=== PATIENT | male | born 1945 | race Caucasian/White ===

== ENCOUNTER 2021-04-14 11:47 | Emergency (ER) | payer MEDICARE, SELFPAY ==
[2021-04-14 11:57] VITALS: BP 130/99; PULSE 143; RESP 16; TEMP 36.3; O2SAT 95; BMI 32.5
--- NOTE | 2021-04-14 12:07 | ECG_ITS ---
[facility] Test Date: 2021-04-14 Pat Name: Zack Olson Department: Room: Gender: Male [employer] Developer: : 1945 Requested By: Adore Harrell I Order Number: [id number] Brittany MD: Batsheva Beatty M.D. Measurements Intervals [place] Rate: 135 P: [place]: QRS: -53 QRSD: 89 T: 53 QT: 329 QTc: 494 Interpretive Statements ATRIAL FIBRILLATION WITH RAPID VENTRICULAR RESPONSE INFERIOR MYOCARDIAL INFARCTION , PROBABLY OLD [40+ ms Q WAVE AND/OR ST/T ABNORMALITY IN II/aVF] Compared to ECG 04/14/2021 11:19:12 Myocardial infarct finding now present Left anterior fascicular block no longer present ST (T wave) deviation no longer present Electronically Signed On 04-15-2021 9:47:27 CDT by Batsheva Beatty M.D. [id number] f
--- NOTE | 2021-04-14 12:07 | XR_ITS ---
WS: [id number] PORTABLE CHEST HISTORY: afib COMPARISON: None available. Lungs are clear and well expanded. No pleural effusion or pneumothorax. Cardiac size: Normal. Mediastinum/Aorta: Normal mediastinum. No osseous abnormality seen. XR/XR chest 1V portable [id number] IMPRESSION: Unremarkable portable chest.
--- NOTE | 2021-04-14 12:09 | ED_ITS ---
HPI - Arrhythmia/Palpitations General: Chief Complaint: Arrhythmia/Palpitations Stated Complaint: ABNORMAL EKG/WAS IN PRE-OP Time Seen by Provider: 04/14/21 11:58 Source: patient and family () Mode of arrival: ambulatory Limitations: no limitations History of Present Illness: HPI narrative: This is a 75-year-old male with a history of hypertension who was obtaining a preoperative physical for a planned hernia repair surgery next week. During the preop EKG it was discovered that he was in A. fib with RVR. He has no prior history of A. fib. He has no complaints today. No chest pain, no shortness of breath, no leg swelling, no weakness. Associated symptoms: Deny anxiety, cough, diaphoresis, muscle cramps, nausea, paresthesias, pre-syncope, sense of impending doom, short of breath, syncope or vomiting Review of Systems General: Reports: 10 or more systems reviewed and unremarkable except in HPI and below Const: Denies: diaphoresis Card: Denies: syncope or pre-syncope GI: Denies: nausea or vomiting Musc: Denies: muscle cramps Psych: Denies: anxiety Physical Exam Const: COMMON NORMALS: no acute distress, average body habitus, patient oriented x3, no limitations, healthy appearing, alert and well nourished HENMT: COMMON NORMALS: normocephalic, atraumatic and moist oral mucous membranes HEAD & SCALP: normocephalic and atraumatic Neck/C-Spine: COMMON NORMALS: full ROM, supple, no meningeal signs, no JVD and No carotid bruits Resp: COMMON NORMALS: normal respiratory effort, No retractions, No use of accessory muscles, clear to auscultation bilaterally and percussion normal AUSCULTATION: clear to auscultation bilaterally PERCUSSION: percussion normal Cardio: COMMON NORMALS: no JVD, S1 normal heart sound present, S2 normal heart sound present, No gallops present (Cardio), No clicks present (Cardio), No murmurs present (Cardio), No rub (Cardio) and Peripheral pulses 2+ throughout RATE: tachycardic RHYTHM: abnormal rhythm regularly irregular HEART SOUNDS: S1 normal heart sound present and S2 normal heart sound present PERIPHERAL PULSES: Peripheral pulses 2+ throughout GI: COMMON NORMALS: Normal to inspection, nondistended, normoactive bowel sounds present, Soft to palpation, non-tender, No hepatosplenomegaly present, no masses and no bruits PALPATION: Yes Soft to palpation and Yes No hepatosplenomegaly present Extremity: COMMON NORMALS: normal to inspection, full ROM, capillary refill normal, no calf tenderness and no pedal edema Neuro: COMMON NORMALS: patient oriented x3 SENSORIUM/ORIENTATION: Yes alert MENINGEAL SIGNS: Yes no meningeal signs Skin: COMMON NORMALS: no rashes or lesions noted, no wounds, turgor normal, no jaundice, no petechiae and no mottling GENERAL SKIN EXAM: no rashes or lesions noted and turgor normal Course Reevaluation(s): Reevaluation #1: Discussed his lab and imaging findings with him. As well as my conversation with the nursing home assistant. Patient says he would strongly like to be discharged home and is okay with an outpatient echocardiogram and work-up. He agreed to start metoprolol and Eliquis. He will obtain an outpatient echocardiogram and follow-up with cardiology. Time: 13:05 Consultations: Consultation #1: Discussed the patient with Dr. Lam, nursing home assistant. Since this is a new diagnosis of A. fib the patient can be admitted for an overnight observation, obtain an echocardiogram and started on the appropriate medications. However if he wants to be discharged home he can be discharged home with a prescription for 50 mg twice daily of metoprolol, and outpatient echocardiogram, Eliquis 5 mg twice daily, and follow-up with cardiology in the office. Time: 13:00 Vital Signs: Vital signs: Vital Signs Temperature 97.3 F L 04/14/21 11:57 Pulse Rate 70 04/14/21 14:00 Respiratory Rate 18 04/14/21 14:00 Blood Pressure 141/85 04/14/21 14:00 Pulse Oximetry 95 04/14/21 14:00 MDM - Arrhythmia/Palpitations MDM Narrative: Medical decision making narrative: Is 75-year-old male presented to the emergency department from his doctor's office where he was obtaining a preoperative physical. During the physical he was noted that he was in A. fib with RVR. He was therefore sent here to be evaluated. Patient is asymptomatic but he is in A. fib with RVR. Management options were discussed with the patient and the patient opted to be discharged home and will obtain an outpatient work-up. He was given a dose of metoprolol orally in the emergency department and he is rate became well controlled. He is discharged home with a prescription for metoprolol, Eliquis and is to follow-up with a nursing home assistant. He will also obtain an outpatient echocardiogram. Medical Records: Attestation: I reviewed the patient's medical records. Lab Data: Attestation: I reviewed the patient's lab results. Labs: Lab Results 04/14/21 04/14/21 04/14/21 Range/Units 12:08 12:08 12:08 WBC 16.1 H (4.0-10.0) 10^3/ uL RBC 5.41 H (4.1-5.3) 10^6/u L Hgb 16.0 (11.7-16.6) g/dL Hct 47.8 (42.0-52.0) % MCV 88.4 (80-94) fL MCH 29.6 (28.0-34.0) pg MCHC 33.5 (30.0-36.0) g/dL RDW 13.1 (12.1-15.1) % Plt Count 379 (130-400) 10^3/c mm MPV 10.0 (7.4-10.4) fL Neut % (Auto) 71.2 % Lymph % (Auto) 22.9 % Piute % (Auto) 5.0 % Eos % (Auto) 0.2 % Baso % (Auto) 0.3 % Neut # (Auto) 11.47 H (1.8-7.7) 10^3/u L Lymph # (Auto) 3.7 (0.8-4.8) 10^3/u L Piute # (Auto) 0.8 (0.2-0.9) 10^3/u L Eos # (Auto) 0.0 (0.0-0.8) 10^3/u L Baso # (Auto) 0.1 (0.0-0.1) 10^3/u L Nucleated RBC % (a uto) 0 % Nucleated RBCs # 0.0 /100WBC PT (12.1-14.9) SECO NDS INR (0.8-1.2) Sodium 141 (136-145) mmol/L Potassium 3.0 L (3.5-5.1) mmol/L Chloride 99 (98-107) mmol/L Carbon Dioxide 25 (22-29) mmol/L Anion Gap 20.0 H (5-19) BUN 6 L (8-23) mg/dL Creatinine 0.7 (0.7-1.2) mg/dL GFR Calculation Not Reportable Glucose 147 H (65-115) mg/dL Calculated Osmolal ity 292 (285-295) mOsm/k g Calcium 9.5 (8.5-10.5) mg/dL Total Bilirubin 0.5 (0.15-1.2) mg/dL AST 13 (0-40) U/L ALT 13 (0-41) U/L Alkaline Phosphata se 107 (40-130) IU/L Troponin T Baselin e 15 (0-15) ng/L NT-Pro-B Natriuret Pep 59 (0-125) pg/mL Total Protein 7.3 (6.6-8.7) g/dL Albumin 4.8 (3.5-5.2) g/dL Globulin 2.5 (1.3-4.6) g/dL TSH 1.26 (0.27-4.20) uIU/ mL 04/14/21 Range/Units 12:27 WBC (4.0-10.0) 10^3/ uL RBC (4.1-5.3) 10^6/u L Hgb (11.7-16.6) g/dL Hct (42.0-52.0) % MCV (80-94) fL MCH (28.0-34.0) pg MCHC (30.0-36.0) g/dL RDW (12.1-15.1) % Plt Count (130-400) 10^3/c mm MPV (7.4-10.4) fL Neut % (Auto) % Lymph % (Auto) % [place] % (Auto) % Eos % (Auto) % Baso % (Auto) % Neut # (Auto) (1.8-7.7) 10^3/u L Lymph # (Auto) (0.8-4.8) 10^3/u L Piute # (Auto) (0.2-0.9) 10^3/u L Eos # (Auto) (0.0-0.8) 10^3/u L Baso # (Auto) (0.0-0.1) 10^3/u L Nucleated RBC % (a uto) % Nucleated RBCs # /100WBC PT 13.60 (12.1-14.9) SECO NDS INR 1.01 (0.8-1.2) Sodium (136-145) mmol/L Potassium (3.5-5.1) mmol/L Chloride (98-107) mmol/L Carbon Dioxide (22-29) mmol/L Anion Gap (5-19) BUN (8-23) mg/dL Creatinine (0.7-1.2) mg/dL GFR Calculation Glucose (65-115) mg/dL Calculated Osmolal ity (285-295) mOsm/k g Calcium (8.5-10.5) mg/dL Total Bilirubin (0.15-1.2) mg/dL AST (0-40) U/L ALT (0-41) U/L Alkaline Phosphata se (40-130) IU/L Troponin T Baselin e (0-15) ng/L NT-Pro-B Natriuret Pep (0-125) pg/mL Total Protein (6.6-8.7) g/dL Albumin (3.5-5.2) g/dL Globulin (1.3-4.6) g/dL TSH (0.27-4.20) uIU/ mL Imaging Data^: CXR: Attestation: I personally reviewed and interpreted this imaging study as follows: Radiologist's impression: [address] [id number] ReportSigned Patient: Zack Olson #: [id number]: 6Acct#:[id number]/Sex: 75 / MADM Date: 04/14/21Loc: ERRoom/Bed:Attending Dr: Ordering Provider/Ordering MD: Adore Harrell MD, [facility] Date of Service: 04/14/21 Procedure(s): XR chest 1V portable [id number] Accession Number(s): [id number] Report Number: [id number] WS: [id number] PORTABLE CHEST HISTORY: afib COMPARISON: None available. Lungs are clear and well expanded. No pleural effusion or pneumothorax. Cardiac size: Normal. Mediastinum/Aorta: Normal mediastinum. No osseous abnormality seen. XR/XR chest 1V portable [id number] IMPRESSION: Unremarkable portable chest. Dictated By:Kathya Rehman DOSigned By:Kathya Rehman DOSigned Date/Time:04/14/21 1225DD/ 1223 EKG Data^: EKG 1: Attestation: I personally reviewed and interpreted this EKG as follows: EKG interpretation date: 04/14/21 EKG interpretation time: 11:58 Prior EKG tracings: not available for review Interpretation: Atrial fibrillation with RVR. Heart rate [address] changes. Other EKG comments: Chest X-Ray 04/14/21 12:07 IMPRESSION: Unremarkable portable chest. Discharge Plan Discharge Patient Disposition: Home Clinical Impression: Atrial fibrillation, new onset Condition: Stable Prescriptions: New metoprolol tartrate 50 mg tablet 50 mg PO BID Qty: 60 RF: 0 Eliquis 5 mg tablet 5 mg PO BID Qty: 60 RF: 0 Continued allopurinol 300 mg tablet 300 mg PO DAILY Qty: 30 RF: 5 hydrocodone-acetaminophen 5-325 mg Tablet 1 tab PO Q6H PRN (Reason: Pain) RF: 0 baclofen 10 mg Tablet 10 mg PO BID RF: 0 amlodipine 10 mg Tablet 10 mg PO DAILY RF: 0 lisinopril 30 mg Tablet 30 mg PO BID RF: 0 Discharge Orders: Discharge ED (Routine); Ordered 04/14/21 Ordered By: Adore Harrell Referrals: Brittani Morejon DO [Primary Care Provider] - 1-3 days Discharge Diet: Usual diet Discharge Activity: Increase activity as tolerated Patient Instructions: Atrial Fibrillation (ED) Activity Restrictions/Additional Instructions: Return for any new or worsening symptoms. Follow-up with your primary care provider within 1 week. You will be contacted by case management to schedule an ultrasound of your heart and to schedule an appointment with cardiology. If you feel dizzy, lightheaded, or you feel you are about to faint please return for evaluation. Coding Level of Care Code ED [employer] I Pipe Fitter for Chg Fwd Exam Comprehensive
[2021-04-14 12:11] VITALS: BP 147/105; PULSE 126; RESP 16; O2SAT 95
[2021-04-14 12:24] LABS: Basophils # 0.1 10^3/uL (0.0-0.1); Basophils % 0.3 %; Eosinophils % 0.2 %; Hematocrit 47.8 % (42.0-52.0); Lymphocytes # 3.7 10^3/uL (0.8-4.8); Lymphocytes % 22.9 %; Mean Corpuscular HGB Conc 33.5 g/dL (30.0-36.0); Mean Corpuscular Hemoglobin 29.6 pg (28.0-34.0); Mean Corpuscular Volume 88.4 fL (80-94); Monocytes # 0.8 10^3/uL (0.2-0.9); Neutrophils # 11.47 10^3/uL (1.8-7.7); Neutrophils % 71.2 %; Nucleated Red Blood Cells % 0 %; Platelet Count 379 10^3/cmm (130-400); Red Blood Count 5.41 10^6/uL (4.1-5.3); Red Cell Distribution Width 13.1 % (12.1-15.1); White Blood Count 16.1 10^3/uL (4.0-10.0)
[2021-04-14 12:41] LABS: Troponin(5th) Baseline 15 ng/L (0-15)
[2021-04-14 12:48] LABS: Alanine Aminotransferase 13 U/L (0-41); Albumin Level 4.8 g/dL (3.5-5.2); Alkaline Phosphatase 107 IU/L (40-130); Aspartate Amino Transferase 13 U/L (0-40); Blood Urea Nitrogen 6 mg/dL (8-23); Calcium 9.5 mg/dL (8.5-10.5); Carbon Dioxide 25 mmol/L (22-29); Chloride 99 mmol/L (98-107); Globulin 2.5 g/dL (1.3-4.6); Glucose 147 mg/dL (65-115); NT Pro B Type Natriuretic Pept 59 pg/mL (0-125); Osmolality Calculated 292 mOsm/kg (285-295); Sodium 141 mmol/L (136-145); Thyroid Stimulating Hormone 1.26 uIU/mL (0.27-4.20); Total Bilirubin 0.5 mg/dL (0.15-1.2); Total Protein 7.3 g/dL (6.6-8.7)
[2021-04-14 12:49] LABS: INR 1.01 (0.8-1.2)
[2021-04-14 13:09] VITALS: BP 127/96; PULSE 118; RESP 20; O2SAT 95
[2021-04-14] MEDS: metoprolol tartrate 50 mg Tablet PO (13:16)
[2021-04-14 14:00] VITALS: BP 141/85; PULSE 70; RESP 18; O2SAT 95
--- NOTE | 2021-04-18 07:34 | DCPLANNER ---
manager of drilling had message to schedule a follow up appointment for patient for an outpatient echo cardiogram. manager of drilling faxed signed order to centralized scheduling. manager of drilling will call for appointment information.
--- NOTE | 2021-05-04 11:52 | DCPLANNER ---
Patient has a follow up appointment scheduled for Monday, May 31, 2021 at 12:45 for an outpatient echo cardiogram. Patient has a follow up appointment scheduled for Monday, June 07, 2021 at 1:[address] Lam. Clinic will call patient with appointment information.
--- NOTE | 2021-07-06 11:38 | DCPLANNER ---
Patient had a follow up appointment scheduled for 05.31.21 for an outpatient echo - patient did attend appointment. Patient had a follow up appointment scheduled for 06.07.21 with [facility] - patient did attend not attend appointment.
== END 2021-04-14 14:03 | disposition home or self-care (01) ==
PROVIDERS: Emergency Provider Family Medicine; PCP Family Medicine
DX: I48.91 Unspecified atrial fibrillation (principal)
CPT/HCPCS: 36415; 71045; 80053; 83880; 84443; 84484; 85025; 85610; 93005; 96374; 99284